=== PATIENT | male | born 1995 | race Two or more races ===

== ENCOUNTER 2021-02-03 19:17 | Emergency (ER) | payer MEDICAID ==
[~2021-02-03] VITALS: Ht 175.3 cm; Wt 65.9 kg
[2021-02-03] MEDS ORDERED: LIDOCAINE 1% 10 ML VIAL SQ ONE (22:45)
[2021-02-03] MEDS ORDERED: PERTUSS(ACELL),DIPH,TET VAC/PF 0.5 ML SYRINGE IM ONE (22:45)
[2021-02-03] MEDS ORDERED: BACITRACIN 0.9 GM PACKET OINTMENT TP ONE (22:45)
[2021-02-04 00:34] VITALS: BP 120/71
== END 2021-02-04 00:37 | disposition home or self-care (01) ==
LOC: EMS 19:20
DX: S61.210A Laceration without foreign body of right index finger without damage to nail, initial encounter (principal); W26.0XXA Contact with knife, initial encounter; Y93.89 Activity, other specified; Y92.89 Other specified places as the place of occurrence of the external cause; Y99.8 Other external cause status
CPT/HCPCS: 12002; 90471; 90715; 99283; J3490